=== PATIENT | female | born 2000 | race Caucasian/White ===

== ENCOUNTER 2024-02-15 19:27 | Emergency (ER) | payer MEDICAID ==
[~2024-02-15] VITALS: Ht 157.5 cm; Wt 54.4 kg
[2024-02-15 19:42] VITALS: BP 112/70; PULSE 88; RESP 16; TEMP 98; O2SAT 100
[2024-02-15] MEDS ORDERED: BENZ-300 PO (20:52)
[2024-02-15] MEDS ORDERED: ACET500T99 PO (20:52)
[2024-02-15] MEDS ORDERED: IBUP-2213 PO (20:52)
[2024-02-15] MEDS ORDERED: ONDA-188 SL (20:52)
[2024-02-15 20:54] LABS: FLU A ANTIGEN negative (NEGATIVE); FLU B ANTIGEN NEGATIVE (NEGATIVE)
[2024-02-15 21:31] VITALS: BP 112/70; PULSE 88; RESP 16; TEMP 98; O2SAT 100
== END 2024-02-15 21:31 | disposition home or self-care (01) ==
LOC: MED 19:27
DX: B34.9 Viral infection, unspecified (principal); Z20.822 Contact with and (suspected) exposure to COVID-19; Z79.899 Other long term (current) drug therapy
CPT/HCPCS: 99283